=== PATIENT | female | born 1940 | race Asian ===

== ENCOUNTER 2017-08-10 06:15 | Day surgery (SDC) | payer MEDICARE ==
[2017-08-10] MEDS ORDERED: GlucaGen 1 MG IM ONE (06:16)
[2017-08-10] MEDS ORDERED: DEMEROL 50 MG IV ONE (06:16)
[2017-08-10] MEDS ORDERED: VERSED 5 MG/5 ML IV ONE ×2 (06:16)
[2017-08-10] MEDS ORDERED: Lactated Ringers 1,000 ML IV SCH (06:30)
[2017-08-10] MEDS ORDERED: Lactated Ringers 1,000 ML IV ONE ×3 (06:50→09:03)
--- NOTE | 2017-08-10 09:54 | OP ---
SURGERY DATE/TIME: 08/10/2017809 PREOPERATIVE DIAGNOSIS: Follow up polyps. POSTOPERATIVE DIAGNOSIS: One polyp. PROCEDURE: Colonoscopy complete to cecum, hot polypectomy x1. SURGEON: Scooter Young M.D. [employer]BRASIVE WHEEL [employer]OLDER: Medical student III. ANESTHESIA: IV sedation. COMPLICATIONS: None. CONDITION: Stable. INDICATION: A patient requiring evaluation. DESCRIPTION OF PROCEDURE: Taken to endoscopy. IV sedation was provided. It was monitored for 15 minutes, Versed and Demerol. Oximetry kept over 90% and sedation level was satisfactory. Anal digital examination satisfactory. Scope introduced. The anus, rectum, sigmoid had a fairly pronounced sigmoid turn and the scope actually hung up there for a little while even the lumen was clearly identified. It was right in the middle. It could not be advanced. With some manipulation and repositioning, I finally readvanced. At this time it was navigated up the descending, splenic, transverse, hepatic, ascending, base of cecum. Ileocecal valve well seen. Base of the cecum was seen. Appendiceal orifice satisfactory. One polyp was present in the cecum and was taken with hot biopsy forceps to extinction. The scope was then circumferentially withdrawn. No additional lesions noted. IMPRESSION: Successful polypectomy x1. PLAN: Follow up in three years at age 80, this may be her last screening exam at age 80. She does have a strong family history of colon cancer and she does have personal history of polyps.
[2017-08-10] MEDS ORDERED: Zofran 4 MG/2 ML VIAL IV PRN (10:17)
[2017-08-10] MEDS ORDERED: Zofran 4 MG/2 ML VIAL ONE (10:18)
[2017-08-10 11:23] VITALS: O2SAT 90
[2017-08-10 11:28] VITALS: BP 137/57; PULSE 73
== END 2017-08-10 11:20 | disposition home or self-care (01) ==
LOC: SDC 06:15
PROVIDERS: ATTEND Surgery
PROC: 0DBH8ZX Excision of Cecum, Via Natural or Artificial Opening Endoscopic, Diagnostic (ICD-10-PCS; principal; 2017-08-10)
DX: D12.0 Benign neoplasm of cecum (principal)
CPT/HCPCS: 36415; 88305; J1610; J2175; J2250; J2405